=== PATIENT | female | born 1985 | race Caucasian/White ===

== ENCOUNTER 2020-02-29 05:08 | Emergency (ER) | payer MEDICAID ==
[2020-02-29 05:29] VITALS: BP 140/95; PULSE 81
[2020-02-29] MEDS ORDERED: Ketorolac 60 MG/2 ML SDV IM ONE (05:54)
--- NOTE | 2020-02-29 05:57 | EDM.PDOC ---
ED HPI GENERAL MEDICAL PROBLEM - General Chief Complaint: Lower Extremity Injury/Pain Stated Complaint: RT FOOT PAIN Time Seen by Provider: 02/29/20 05:45 Source of Information: Reports: Patient, Family History Limitations: Reports: No Limitations - History of Present Illness INITIAL COMMENTS - FREE TEXT/NARRATIVE: 34-year-old female with a very sharp pain in the medial aspect of her left foot for the past 48 hours. It started yesterday morning when she got up and it is been steadily getting worse, last night she hardly slept. There is no discoloration, significant swelling, history of trauma, warmth or redness. It is intensely painful with any movement or palpation. She has not had anything like this in the past, she has no other areas of the extremities or joints that are painful. Onset: Gradual Duration: Hour(s): (48 hours) Location: Reports: Lower Extremity, Left Quality: Reports: Sharp, Stabbing Improves with: Reports: None (Ibuprofen and rest has not helped) Worsens with: Reports: Other (Weightbearing), Movement Associated Symptoms: Reports: No Other Symptoms Left Foot Pain Score (Numeric/FACES): 6 - Related Data Allergies Allergy/AdvReac Type Severity Reaction Status Date / Time nickel [Nickel] Allergy Mild Rash Verified 02/29/20 05:22 Home Meds: Home Meds FLUoxetine HCl [Fluoxetine Dr] 90 mg PO DAILY 02/29/20 [History] Lisdexamfetamine Dimesylate [Vyvanse] 20 mg PO DAILY 02/29/20 [History] busPIRone [Buspar] 20 mg PO DAILY 02/29/20 [History] Past Medical History Psychiatric History: Reports: Anxiety, Depression, Suicide Attempt, Suicidal Ideation - Past Surgical History Female Surgical History: Reports: Tubal Ligation Social & Family History - Tobacco Use Smoking Status *Q: Current Every Day Smoker Years of Tobacco use: 15 Packs/Tins Daily: 0.5 - Recreational Drug Use Recreational Drug Use: No Review of Systems - Review of Systems Review Of Systems: See Below Constitutional: Denies: Fever Respiratory: Reports: No Symptoms Cardiovascular: Reports: No Symptoms Skin: Reports: No Symptoms Neurological: Denies: Paresthesia ED EXAM, GENERAL - Physical Exam Exam: See Below Exam Limited By: No Limitations General Appearance: Alert, Mild Distress (Foot is painful enough to cause her significant discomfort) Respiratory/Chest: No Respiratory Distress Extremities: Other (Exam is otherwise limited to the feet. Grossly they appear symmetrical. The left foot has intense pain on the medial aspect of the foot started in the arch expanding around to just under the medial malleolus. On palpation there may be some slight swelling, but there is no bruising, redness, warmth or masslike thickness palpable. It is intensely painful) Course - Vital Signs Last Recorded V/S: Last Vital Signs Temp 98.1 F 02/29/20 05:24 Pulse 81 02/29/20 05:24 Resp 18 02/29/20 05:24 BP 140/95 H 02/29/20 05:24 Pulse Ox 98 02/29/20 05:24 - Orders/Labs/Meds Orders: Active Orders 24 hr Category Date Time Status Foot Comp Min 3V Lt [CR] Stat Exams 02/29/20 05:51 Taken Meds: Medications Discontinued Medications Generic Name Dose Route Start Last Admin Trade Name Freq PRN Reason Stop Dose Admin Ketorolac Tromethamine 60 mg 02/29/20 05:54 02/29/20 05:58 Toradol IM 02/29/20 05:55 60 mg ONETIME ONE Administration - Re-Assessments/Exams Free Text/Narrative Re-Assessment/Exam: 02/29/20 05:57 Patient was given 60 mg of IM Toradol the left foot x-ray was obtained. 02/29/20 06:16 X-ray shows what appears to be a chronic ossification or spurring off the medial aspect of the navicular bone but no other abnormality. Patient was placed in a cam walker and given crutches, will be supplied with 10 hydrocodone for extra pain control and I would like her to see Dr. Gutiérrez on Monday for a podiatry consultation. Departure - Departure Time of Disposition: 06:34 Disposition: Home, Self-Care 01 Clinical Impression: Acute pain of left foot - Discharge Information Instructions: Pain Without a Known Cause Referrals: Diana Bland PA [Primary Care Provider] - Forms: ED Department Discharge Care Plan Goals: Keep foot in walking boot to remain still, elevate when able and continue with anti-inflammatories. Use crutches for assistance with ambulation when needed. Add stronger pain medications as directed and see Dr. Gutiérrez if possible on [place] for reevaluation. Sepsis Event Note (ED) - Evaluation Sepsis Screening Result: No Definite Risk - Focused Exam Vital Signs: Vital Signs Temp Pulse Resp BP Pulse Ox 02/29/20 05:24 98.1 F 81 18 140/95 H 98 - My Orders Last 24 Hours: My Active Orders 02/29/20 05:51 Foot Comp Min 3V Lt [CR] Stat - Assessment/Plan Last 24 Hours: My Active Orders 02/29/20 05:51 Foot Comp Min 3V Lt [CR] Stat
--- NOTE | 2020-03-03 09:18 | CR ---
Foot Comp Min 3V Lt CLINICAL HISTORY: Pain, trauma FINDINGS: There is some linear lucency through the medial aspect of the navicular There is an os navicularis. IMPRESSION: Irregular linear lucency through the medial aspect of the navicular. Nondisplaced fracture is not excluded. If clinical symptomatology persists repeat exam is recommended
== END 2020-02-29 06:34 | disposition home or self-care (01) ==
LOC: JP.ED 05:08
DX: M79.672 Pain in left foot (principal); F41.9 Anxiety disorder, unspecified; F32.9 Major depressive disorder, single episode, unspecified; F17.210 Nicotine dependence, cigarettes, uncomplicated; Z79.899 Other long term (current) drug therapy
CPT/HCPCS: 73630; 96372; 99283; J1885

== ENCOUNTER 2022-10-03 07:57 | Emergency (ER) | payer MEDICAID ==
[2022-10-03] MEDS ORDERED: HYDROmorphone 0.5 MG/0.5 ML Syringe IVPUSH ONE (08:50)
[2022-10-03] MEDS ORDERED: Ondansetron 4 MG/2 ML SDV IVPUSH ONE (08:50)
[2022-10-03] MEDS ORDERED: Sodium Chloride 0.9% 1,000 ML IV SCH (09:00)
[2022-10-03 09:08] LABS: ESTIMATED GFR 86 mL/min (>60)
[2022-10-03] MEDS ORDERED: Ketorolac 30 MG/ML SDV IVPUSH ONE (09:22)
[2022-10-03] MEDS ORDERED: Tamsulosin 0.4 MG Cap.ER PO ONE (09:51)
[2022-10-03 10:14] VITALS: BP 101/69; PULSE 101
== END 2022-10-03 10:20 | disposition home or self-care (01) ==
LOC: JP.ED 07:57
DX: N23 Unspecified renal colic (principal); F17.210 Nicotine dependence, cigarettes, uncomplicated; Z91.048 Other nonmedicinal substance allergy status
CPT/HCPCS: 36415; 74176; 80053; 81001; 83690; 85025; 96361; 96374; 96375; 99283; 99284; A9270; J1170; J1885; J2405; J7030

== ENCOUNTER 2023-05-06 19:11 | Emergency (ER) | payer MEDICAID ==
[2023-05-06] MEDS ORDERED: HYDROmorphone 1 MG/ML Syringe IVPUSH ONE ×2 (20:01→22:51)
[2023-05-06] MEDS ORDERED: Naloxone 0.4 MG/ML SDV IVPUSH PRN (20:01)
[2023-05-06 20:02] VITALS: BP 146/95; PULSE 124
[2023-05-06] MEDS ORDERED: Ondansetron 4 MG/2 ML SDV IVPUSH ONE (20:02)
[2023-05-06 20:10] LABS: BASOPHILS ABSOLUTE AUTO 0.05 K/uL (0.00-0.10); BASOPHILS PERCENT AUTO 0.4 % (0.1-1.3); EOSINOPHILS ABSOLUTE AUTO 0.01 K/uL (0.00-0.40); EOSINOPHILS PERCENT AUTO 0.1 % (0.0-5.4); HEMATOCRIT 38.3 % (34.3-46.0); HEMOGLOBIN 13.2 g/dL (11.2-15.5); IMMATURE GRAN ABSOLUTE AUTO 0.05 K/uL (0.00-0.23); IMMATURE GRAN PERCENT AUTO 0.4 % (0.0-0.7); LYMPHOCYTES PERCENT AUTO 13.2 % (11.4-47.7); MEAN CORPUSCULAR HEMOGLOBIN 28.8 pg (31.6-35.5); MEAN CORPUSCULAR HGB CONC 34.5 g/dL (31.6-35.5); MEAN CORPUSCULAR VOLUME 83.6 fL (81.4-99.0); MONOCYTES ABSOLUTE AUTO 1.29 K/uL (0.20-0.90); NEUTROPHILS ABSOLUTE AUTO 9.79 K/uL (1.0-7.6); NEUTROPHILS PERCENT AUTO 75.9 % (40.0-78.1); PLATELET COUNT,PLT 315 K/uL (130-375); RED BLOOD CELL COUNT 4.58 M/uL (3.77-5.24); WHITE BLOOD CELL COUNT,WBC 12.9 K/uL (3.2-11.0)
[2023-05-06] MEDS ORDERED: Sodium Chloride 0.9% 1,000 ML IV SCH (20:15)
[2023-05-06 20:18] LABS: APPEARANCE,URINE CLOUDY (CLEAR); BILIRUBIN,URINE NEGATIVE (NEGATIVE); COLOR,URINE YELLOW (YELLOW); GLUCOSE,URINE NEGATIVE (NEGATIVE); KETONES,URINE NEGATIVE (NEGATIVE); LEUKOCYTE ESTERASE,URINE TRACE (NEGATIVE); NITRITE,URINE POSITIVE (NEGATIVE); OCCULT BLOOD,URINE TRACE-INTACT (NEGATIVE); PH,URINE 8.5 (5.0-8.0); PROTEIN,URINE NEGATIVE (NEGATIVE); UROBILINOGEN,URINE 0.2 EU/dL (0.2-1.0)
[2023-05-06 20:24] LABS: AMORPHOUS SEDIMENT,URINE NOT SEEN; BACTERIA,URINE MANY; EPITHELIAL CELLS,URINE FEW; MUCUS,URINE FEW; RBC,URINE 0-5 (0-5)
[2023-05-06] MEDS ORDERED: cefTRIAXone 2 GM in Sodium Chloride 0.9% 50 ML IV ONE (20:27)
[2023-05-06 20:29] LABS: A/G RATIO 0.8 (1.2-2.2); ALANINE AMINOTRANSFERASE,ALT 20 U/L (12-78); ALBUMIN 3.4 g/dL (3.4-5.0); ALKALINE PHOSPHATASE 74 U/L (46-116); ASPARTATE AMNIOTRANSFERASE,AST 15 U/L (15-37); BILIRUBIN TOTAL 0.4 mg/dL (0.2-1.0); BLOOD UREA NITROGEN,BUN 10 mg/dL (7-18); CALCIUM 8.6 mg/dL (8.5-10.1); CARBON DIOXIDE,CO2 25 mmol/L (21-32); CHLORIDE,CL 97 mmol/L (100-108); EST CRCL DRUG DOSING (CG) 76.36 mL/min; ESTIMATED GFR 75 mL/min (>60); GLUCOSE RANDOM 104 mg/dL (74-106); PROTEIN TOTAL,TP 7.6 g/dL (6.4-8.2); SODIUM,NA 132 mmol/L (140-148)
== END 2023-05-06 23:04 ==
LOC: JP.ED 19:11
DX: N13.2 Hydronephrosis with renal and ureteral calculous obstruction (principal); N39.0 Urinary tract infection, site not specified; F17.210 Nicotine dependence, cigarettes, uncomplicated; Z91.048 Other nonmedicinal substance allergy status; Z20.822 Contact with and (suspected) exposure to COVID-19
CPT/HCPCS: 36415; 74176; 80053; 81001; 85025; 87635; 96361; 96365; 96375; 96376; 99285; J0696; J1170; J2405; J3490; J7030; U0002

== ENCOUNTER 2024-08-31 01:04 | Emergency (ER) | payer MEDICAID ==
[2024-08-31] MEDS: LORazepam 1 MG Tab PO ONE (03:04)
[2024-08-31 04:06] VITALS: BP 156/95; PULSE 110
== END 2024-08-31 12:24 | disposition home or self-care (01) ==
LOC: JP.ED 01:04
DX: F43.10 Post-traumatic stress disorder, unspecified (principal); F41.9 Anxiety disorder, unspecified; Z91.048 Other nonmedicinal substance allergy status; Z79.899 Other long term (current) drug therapy
CPT/HCPCS: 99284; A9270

== ENCOUNTER 2024-09-24 00:02 | Emergency (ER) | payer MEDICAID ==
[2024-09-24 00:36] LABS: BASOPHILS ABSOLUTE AUTO 0.05 K/uL (0.00-0.10); BASOPHILS PERCENT AUTO 0.5 % (0.1-1.3); EOSINOPHILS ABSOLUTE AUTO 0.14 K/uL (0.00-0.40); EOSINOPHILS PERCENT AUTO 1.5 % (0.0-5.4); HEMOGLOBIN 12.9 g/dL (11.2-15.5); IMMATURE GRAN ABSOLUTE AUTO 0.03 K/uL (0.00-0.23); IMMATURE GRAN PERCENT AUTO 0.3 % (0.0-0.7); LYMPHOCYTES ABSOLUTE AUTO 2.35 K/uL (0.8-3.3); LYMPHOCYTES PERCENT AUTO 24.7 % (11.4-47.7); MEAN CORPUSCULAR HEMOGLOBIN 28.8 pg (31.6-35.5); MEAN CORPUSCULAR HGB CONC 34.9 g/dL (31.6-35.5); MEAN CORPUSCULAR VOLUME 82.6 fL (81.4-99.0); MONOCYTES ABSOLUTE AUTO 0.81 K/uL (0.20-0.90); MONOCYTES PERCENT AUTO 8.5 % (3.3-12.6); NEUTROPHILS ABSOLUTE AUTO 6.14 K/uL (1.0-7.6); NEUTROPHILS PERCENT AUTO 64.5 % (40.0-78.1); PLATELET COUNT,PLT 238 K/uL (130-375); RED BLOOD CELL COUNT 4.48 M/uL (3.77-5.24); WHITE BLOOD CELL COUNT,WBC 9.5 K/uL (3.2-11.0)
[2024-09-24 00:43] LABS: APPEARANCE,URINE CLEAR (CLEAR); BILIRUBIN,URINE NEGATIVE (NEGATIVE); COLOR,URINE YELLOW (YELLOW); GLUCOSE,URINE NEGATIVE (NEGATIVE); KETONES,URINE NEGATIVE (NEGATIVE); LEUKOCYTE ESTERASE,URINE NEGATIVE (NEGATIVE); NITRITE,URINE NEGATIVE (NEGATIVE); OCCULT BLOOD,URINE TRACE-INTACT (NEGATIVE); PROTEIN,URINE TRACE mg/dL (NEGATIVE)
[2024-09-24 00:48] LABS: AMPHETAMINES SCREEN, URINE PRESUMPTIVE POSITIVE (NEGATIVE); BARBITURATE SCREEN,URINE NEGATIVE (NEGATIVE); BENZODIAZEPINES SCREEN,URINE NEGATIVE (NEGATIVE); METHADONE SCREEN, URINE NEGATIVE (NEGATIVE); METHAMPHETAMINES SCREEN, URINE PRESUMPTIVE POSITIVE (NEGATIVE); OXYCODONE SCREEN,URINE NEGATIVE (NEGATIVE); PROPOXYPHENE SCREEN,URINE NEGATIVE (NEGATIVE); THC SCREEN,URINE 50 NG/ML NEGATIVE (NEGATIVE)
[2024-09-24 00:53] LABS: RBC,URINE 0-5 (0-5)
[2024-09-24 00:54] LABS: AMORPHOUS SEDIMENT,URINE FEW; BACTERIA,URINE MANY; EPITHELIAL CELLS,URINE MODERATE; MUCUS,URINE NOT SEEN
[2024-09-24 00:55] LABS: ALANINE AMINOTRANSFERASE,ALT 27 U/L (12-78); ALBUMIN 3.8 g/dL (3.4-5.0); ALKALINE PHOSPHATASE 67 U/L (46-116); ANION GAP 17.1 mmol/L (5.0-14.0); ASPARTATE AMNIOTRANSFERASE,AST 31 U/L (15-37); BILIRUBIN TOTAL 0.3 mg/dL (0.2-1.0); BLOOD UREA NITROGEN,BUN 18 mg/dL (7-18); CALCIUM 8.7 mg/dL (8.5-10.1); CARBON DIOXIDE,CO2 24 mmol/L (21-32); CHLORIDE,CL 101 mmol/L (100-108); CREATININE 0.9 mg/dL (0.6-1.0); ESTIMATED GFR 85 mL/min (>60); GLUCOSE RANDOM 91 mg/dL (74-106); POTASSIUM,K 4.1 mmol/L (3.6-5.2); PROTEIN TOTAL,TP 7.6 g/dL (6.4-8.2); SODIUM,NA 138 mmol/L (140-148)
[2024-09-24] MEDS: LORazepam 1 MG Tab PO ONE (03:50)
[2024-09-24 13:08] VITALS: BP 127/82; PULSE 86
== END 2024-09-24 12:29 ==
LOC: JP.ED 00:02
DX: F43.10 Post-traumatic stress disorder, unspecified (principal); F15.10 Other stimulant abuse, uncomplicated; R45.851 Suicidal ideations; Z86.16 Personal history of COVID-19; Z91.048 Other nonmedicinal substance allergy status; Z79.51 Long term (current) use of inhaled steroids; Z79.899 Other long term (current) drug therapy
CPT/HCPCS: 36415; 80053; 80305; 80307; 81001; 81025; 85025; 99285; A9270

== ENCOUNTER 2025-07-01 12:57 | Emergency (ER) | payer MEDICAID ==
[2025-07-01] MEDS: Ketorolac 15 MG/ML SDV IVPUSH ONE (13:40)
[2025-07-01 13:45] LABS: PLATELET COUNT,PLT 179 K/uL (130-375); RED BLOOD CELL COUNT 4.99 M/uL (3.77-5.24); WHITE BLOOD CELL COUNT,WBC 5.6 K/uL (3.2-11.0)
[2025-07-01 14:19] LABS: A/G RATIO 0.8 (1.2-2.2); BILIRUBIN TOTAL 3.8 mg/dL (0.2-1.0); BLOOD UREA NITROGEN,BUN 8 mg/dL (7-18); CARBON DIOXIDE,CO2 27 mmol/L (21-32); CHLORIDE,CL 98 mmol/L (100-108); CREATININE 0.9 mg/dL (0.6-1.0); EST CRCL DRUG DOSING (CG) 80.12 mL/min; ESTIMATED GFR 84 mL/min (>60); GLUCOSE RANDOM 119 mg/dL (74-106); POTASSIUM,K 3.6 mmol/L (3.6-5.2); PROTEIN TOTAL,TP 6.9 g/dL (6.4-8.2); SODIUM,NA 134 mmol/L (140-148)
[2025-07-01 14:22] LABS: BAND ABSOLUTE MAN 0.39 K/uL; BAND PERCENT MAN 7 % (5-11); EOSINOPHILS ABSOLUTE MAN 0.28 K/uL (0.00-0.40); EOSINOPHILS PERCENT MAN 5 % (2-4); LYMPHOCYTES ABSOLUTE MAN 2.02 K/uL (0.8-3.3); LYMPHOCYTES PERCENT MAN 36 % (24-44); MONOCYTES ABSOLUTE MAN 0.67 K/uL (0.20-0.90); MONOCYTES PERCENT MAN 12 % (2-6); NEUTROPHILS ABSOLUTE MAN 2.24 K/uL (1.0-7.6); SEG NEUTROPHILS PERCENT MAN 40 % (36-66)
[2025-07-01 14:35] LABS: ALANINE AMINOTRANSFERASE,ALT 2814 U/L (12-78); ASPARTATE AMNIOTRANSFERASE,AST 2702 U/L (15-37)
[2025-07-01 14:59] LABS: APPEARANCE,URINE CLOUDY (CLEAR); GLUCOSE,URINE 100 mg/dL (NEGATIVE); OCCULT BLOOD,URINE TRACE-INTACT (NEGATIVE)
[2025-07-01 15:12] LABS: SQUAMOUS EPITHELIAL CELLS,UR FEW /HPF; UROTHELIAL CELLS,URINE NOT SEEN /HPF
[2025-07-01 15:29] LABS: AMPHETAMINES SCREEN, URINE PRESUMPTIVE POSITIVE (NEGATIVE); METHADONE SCREEN, URINE NEGATIVE (NEGATIVE); METHAMPHETAMINES SCREEN, URINE PRESUMPTIVE POSITIVE (NEGATIVE)
[2025-07-01 15:30] LABS: OXYCODONE SCREEN,URINE NEGATIVE (NEGATIVE); PROPOXYPHENE SCREEN,URINE NEGATIVE (NEGATIVE); THC SCREEN,URINE 50 NG/ML PRESUMPTIVE POSITIVE (NEGATIVE)
[2025-07-01] MEDS: Sodium Chloride 0.9% 10 ML Syringe FLUSH ONE (16:39)
[2025-07-01] MEDS: Iopamidol 612 MG/ML 100 ML Bottle IV ONE (16:39)
[2025-07-01] MEDS: Sodium Chloride 0.9% 10 ML Syringe FLUSH PRN (19:15)
[2025-07-01] MEDS: LORazepam 2 MG/ML SDV IVPUSH ONE (21:10)
[2025-07-02 06:26] LABS: PLATELET COUNT,PLT 167 K/uL (130-375); RED BLOOD CELL COUNT 4.65 M/uL (3.77-5.24); WHITE BLOOD CELL COUNT,WBC 5.3 K/uL (3.2-11.0)
[2025-07-02 06:50] LABS: BAND ABSOLUTE MAN 0.11 K/uL; BAND PERCENT MAN 2 % (5-11); EOSINOPHILS ABSOLUTE MAN 0.27 K/uL (0.00-0.40); EOSINOPHILS PERCENT MAN 5 % (2-4); LYMPHOCYTES ABSOLUTE MAN 2.07 K/uL (0.8-3.3); LYMPHOCYTES PERCENT MAN 39 % (24-44); MONOCYTES ABSOLUTE MAN 0.64 K/uL (0.20-0.90); MONOCYTES PERCENT MAN 12 % (2-6); NEUTROPHILS ABSOLUTE MAN 2.23 K/uL (1.0-7.6); SEG NEUTROPHILS PERCENT MAN 42 % (36-66)
[2025-07-02 06:51] LABS: A/G RATIO 0.8 (1.2-2.2); BILIRUBIN TOTAL 5.1 mg/dL (0.2-1.0); BLOOD UREA NITROGEN,BUN 10 mg/dL (7-18); CARBON DIOXIDE,CO2 27 mmol/L (21-32); CHLORIDE,CL 104 mmol/L (100-108); CREATININE 0.7 mg/dL (0.6-1.0); EST CRCL DRUG DOSING (CG) 103.01 mL/min; ESTIMATED GFR 114 mL/min (>60); GLUCOSE RANDOM 80 mg/dL (74-106); POTASSIUM,K 3.9 mmol/L (3.6-5.2); PROTEIN TOTAL,TP 5.7 g/dL (6.4-8.2); SODIUM,NA 136 mmol/L (140-148)
[2025-07-02] MEDS: Ketorolac 30 MG/ML SDV IVPUSH ONE (07:09)
[2025-07-02 07:12] LABS: ALANINE AMINOTRANSFERASE,ALT 3361 U/L (12-78); ASPARTATE AMNIOTRANSFERASE,AST 3366 U/L (15-37)
[2025-07-02 14:15] VITALS: BP 102/61; PULSE 97
[2025-07-03 19:56] LABS: HEPATITIS A ANTIBODY, IGM Negative (Negative); HEPATITIS C AB CIA INTERP High Pos (Negative); HEPATITIS C ANTIBODY CIA INDEX >11.00 IV
[2025-07-04 12:46] LABS: B. BURGDORFERI IGG IMMUNOBLOT Negative (Negative); B. BURGDORFERI IGM IMMUNOBLOT Positive (Negative)
[2025-07-04 16:21] LABS: HCV QNT BY NAAT (IU/ML) 384000 IU/mL; HCV QNT BY NAAT (LOG IU/ML) 5.58 log IU/mL; HCV QNT BY NAAT INTERP Detected (Not Detected)
[2025-07-05 09:45] LABS: ANAPLASMA PHAGOCYTOPHILUM PCR Not Detected; BABESIA MICROTI BY PCR Not Detected; EHRLICHIA CHAFFEENSIS BY PCR Not Detected; EHRLICHIA EWINGII/CANIS BY PCR Not Detected; EHRLICHIA MURIS-LIKE BY PCR Not Detected
== END 2025-07-02 14:00 ==
LOC: JP.ED 12:57
DX: A69.20 Lyme disease, unspecified (principal); R74.01 Elevation of levels of liver transaminase levels; R10.A2 Flank pain, left side; F17.200 Nicotine dependence, unspecified, uncomplicated; Z91.048 Other nonmedicinal substance allergy status; Z79.899 Other long term (current) drug therapy
CPT/HCPCS: 36415; 71046; 74177; 76705; 80053; 80074; 80305; 80307; 81001; 81025; 83605; 83690; 83880; 85025; 86140; 86308; 86617; 86618; 87040; 87449; 87468; 87469; 87484; 87522; 87798; 93005; 96361; 96365; 96366; 96367; 96375; 96376; 99285; A9270; J0696; J1271; J1790; J1885; J2060; J7030; Q9967; 93010; J1171